=== PATIENT | male | born 1935 | race Caucasian/White ===

== ENCOUNTER → 2019-04-26 | Outpatient (CLI) | payer MEDICARE ==
[~2019-04-26] VITALS: Ht 165.1 cm; Wt 78.9 kg
[~2019-04-26] MED LIST: REGADENOSON 0.4 MG/5 ML PF SYG IVP SCH
== END | disposition home or self-care (01) ==
LOC: SHCH 07:38
PROVIDERS: ATTEND Internal Medicine Cardiovascular Disease
DX: I45.10 Unspecified right bundle-branch block (principal); I10 Essential (primary) hypertension; I25.10 Atherosclerotic heart disease of native coronary artery without angina pectoris
CPT/HCPCS: 78452; 93017; 96374; A9500 ×2; J2785

== ENCOUNTER → 2019-06-06 | Outpatient (CLI) | payer MEDICARE ==
[~2019-06-06] MED LIST changes: +AEC81 PO; +ALLO300T2 PO; +ATEN25TA PO; +CITA40TA6 PO; +CLOP75TA32 PO; +CYAN250010 PO; +GLUC-145 PO; +MELO-108 PO; -REGADENOSON 0.4 MG/5 ML PF SYG IVP SCH; +SIMV-46 PO; +TEMA30CA5 PO
== END | disposition home or self-care (01) ==
LOC: OIH 07:46
PROVIDERS: ATTEND Neurological Surgery
DX: M47.812 Spondylosis without myelopathy or radiculopathy, cervical region (principal); M43.22 Fusion of spine, cervical region; Z98.1 Arthrodesis status
CPT/HCPCS: 72040